=== PATIENT | female | born 1975 | race Hispanic/Latino ===

== ENCOUNTER 2025-05-22 16:45 | Emergency (ER) | payer BC ==
[~2025-05-22] VITALS: Ht 157.5 cm; Wt 99.8 kg
--- NOTE | 2025-05-22 17:56 | HMCIMG ---
EXAM: CR left Wrist, 3 View. CLINICAL HISTORY: pain COMPARISON: None provided. FINDINGS: BONES: No acute osseous abnormality. No acute fracture. JOINTS: No dislocation. The carpal bones demonstrate normal alignment. SOFT TISSUES: The soft tissues are unremarkable. IMPRESSION: 1. No acute findings. /[place]
--- NOTE | 2025-05-22 18:06 | ERN ---
ED Note History of Present Illness Stated Complaint: WRIST PAIN Chief Complaint: Wrist Pain/Injury Time Seen by MD: 17:09 Time Seen by Midlevel: 17:09 Dictation: The patient is a 49-year-old female with history of tubal ligation who presents to the emergency department with complaints of left eye wrist pain onset Sunday after her dogs wrapped the leash around her wrist. Allergies: Coded Allergies: No Known Drug Allergies (Unverified Allergy, Unknown, 05/22/25) Past Medical History Past Medical History: No Pertinent History Surgical History: LMP: May 07, 2025 RN Note Reviewed/Agreed w/PFSH: Yes Review of System Dictation Constitutional: Negative for fever,chills, and weight loss Eyes: Negative for injury, pain,redness, and discharge ENT: Negative for injury,pain or swelling Cardiovascular: Negative for chest pain, palpitations, and edema Respiratory: Negative for shortness of breath, cough, and wheezing, Abdomen/GI: Negative for abdominal pain, nausea, vomiting, diarrhea, and constipation Back: Negative for injury and pain : Negative for injury, bleeding and discharge MS/Extremity: Positive for left wrist pain Skin: Negative for rash, and discoloration Neuro: Negative for headache, weakness, numbness, tingling, and seizure Psych: Negative for suicide ideation, homicidal ideation, and hallucinations Initial Vital Sign VS Vital Signs Date Time Temp Pulse Resp B/P (MAP) Pulse Ox O2 Delivery O2 Flow Rate FiO2 05/22/25 16:46 97.5 78 19 167/114 99 Room Air 0 05/22/25 17:16 21 Physical Exam Dictation Vital Signs reviewed General Appearance: Alert, oriented x 3, no acute distress, well developed, nourished. Head and Face: non-traumatic. Eyes: PERRL, pink conjunctivas, eyelid no trauma, anterior chamber with arcus senilis. Ears: Pinnas intact and no signs of trauma or erythema ear canals clear and no discharge TM no erythema Nose: No discharge, no bleeding. Oropharynx: Mouth normal, tongue pink. pharynx clear,no erythema, tonsils no exudates, no abscesses noted, mucous membrane moist Neck: Supple, non-tender, no thyromegaly, no masses, no JVD, no bruits Breast:Deferred Chest:No tenderness, no crepitus, no paradoxical movement, no retractions Lungs:Clear, well-ventilated, symmetric, no rales, no wheezing, no rhonchi, no stridor, good breath sounds bilaterally Heart: Regular rate, regular rhythm, no murmur, no gallops Vascular: no peripheral edema, radial pulses 3+ bilaterally Abdomen: Soft, positive bowel sounds, nondistended, no guarding, nontender, no rebound, no masses no hepatomegaly, no splenomegaly, no Capps's sign, no hernias. Rectal: Deferred Genital: Deferred Neurological: Normal speech, motor function intact, sensory function intact Musculoskeletal: Neck nontender, full range of motion, back nontender, full range of motion, Extremities: nontender, full range of motion , full range of motion to wrist, cap refill less than 2 seconds Skin: Color pink, dry, no turgor, no rash, no lacerations, no abrasions, no contusions. Lymphatic: Deferred Results (Laboratory/Radiology) Laboratory/Radiology REASON: pain ORDERING PHYSICIAN: DAXA JASON [employer]PERVISOR PROCEDURE: WRST 3V LT - WRIST COMP 3+VWS LT EXAM: CR left Wrist, 3 View. CLINICAL HISTORY: pain COMPARISON: None provided. FINDINGS: BONES: No acute osseous abnormality. No acute fracture. JOINTS: No dislocation. The carpal bones demonstrate normal alignment. SOFT TISSUES: The soft tissues are unremarkable. IMPRESSION: 1. No acute findings. /[place] [facility] Reviewed?: Yes ED Course ED Course Orders Procedure Category Date Status Time Wrist Comp 3+Vws Lt RAD 05/22/25 Resulted 17:12 Ketorolac 60mg/2ml PHA 05/22/25 Complete (Toradol 60mg/2ml) 17:30 Current Medications Medications (Trade) Dose Ordered Sig/Pauline Route PRN Reason Start Time Stop Time Status Last Admin Dose Admin Ketorolac Tromethamine (toRADol 60MG/ 2ML) 60 mg ONCE ONCE IM 05/22/25 17:30 05/22/25 17:31 DC 05/22/25 17:42 Vital Signs Date Time Temp Pulse Resp B/P (MAP) Pulse Ox O2 Delivery O2 Flow Rate FiO2 05/22/25 17:16 97.7 75 18 160/100 98 Room Air* 0 21 05/22/25 16:46 97.5 78 19 167/114 99 Room Air 0 Medical Decision Making MDM The patient is a 49-year-old female with history of tubal ligation who presents to the emergency department with complaints of left eye wrist pain onset Sunday after her dogs wrapped the leash around her wrist. X-ray showed no acute fractures. On physical exam patient has full movement to her hand and wrist. Patient able to move her fingers has good pulses. Patient does reports some tingling and numbness but is able to sense touch. Patient will be discharged to follow up with ortho. Differential diagnosis: Wrist sprain, wrist fracture, wrist dislocation Need for hospitalization: Patient does not meet criteria for hospitalization. There are no social concerns with this patient. DX & DISP Disposition: Discharge Departure Impression: Primary Impression: Left wrist sprain Condition: Stable Additional Instructions: Your x-rays did not show any fractures. Please follow up with ortho. If any thing worsens please return to ER. FOLLOW-UP WITH PRIMARY CARE PROVIDER IN 1 TO 2 DAYS. TAKE MEDICATIONS DIRECTED HERE IN THE EMERGENCY ROOM. OKAY TO CONTINUE HOME MEDICATIONS UNLESS OTHERWISE DISCUSSED DURING YOUR VISIT IN THE EMERGENCY ROOM TODAY. RETURN TO YOUR NEAREST EMERGENCY ROOM IF SYMPTOMS WORSEN OR IF THERE IS NO IMPROVEMENT. CALL 911 IF YOU NEED IMMEDIATE ASSISTANCE. TAKE TYLENOL [id number] NEEDED AND IF NO CONTRAINDICATIONS ARE PRESENT. INCREASE ORAL HYDRATION. A WOUND CULTURE OR URINE CULTURE WAS ORDERED HERE IN THE EMERGENCY ROOM DEPARTMENT PLEASE FOLLOW-UP WITH PRIMARY CARE PROVIDER AND ADVISE THEM TO GET REPEAT PORTS FROM OUR FACILITY. IF YOU HAD ANY FADY WRAP/SPLINTS THAT WERE APPLIED HERE, PLEASE DO NOT REMOVE THEM UNTIL YOU SEE YOUR PRIMARY CARE OR SPECIALTY. Referrals: SELF,REFERRAL (PCP) ENZO RAMAN MD Time of Disposition: 18:05 I have reviewed the case, and I agree with, Diagnosis and Plan DAXA JASON [facility] May 22, 2025 18:06
[2025-05-22 18:14] VITALS: BP 148/89; PULSE 75; RESP 18; TEMP 97.7; O2SAT 99
== END 2025-05-22 18:14 | disposition home or self-care (01) ==
LOC: EDH 16:46
DX: S63.502A Unspecified sprain of left wrist, initial encounter (principal); Z98.890 Other specified postprocedural states; X58.XXXA Exposure to other specified factors, initial encounter; Y93.89 Activity, other specified; Y92.89 Other specified places as the place of occurrence of the external cause; Y99.8 Other external cause status
CPT/HCPCS: 99284; 73110; 96372; J1885